=== PATIENT | female | born 1990 | race Caucasian/White ===

== ENCOUNTER 2023-02-25 08:13 | Inpatient (IN) ==
[2023-02-25] MEDS ORDERED: OXYTOCIN 30 UNITS/500 ML BAG IV PRN (09:27)
[2023-02-25] MEDS ORDERED: LIDOCAINE 1% LOCAL 20 ML VIAL INFIL PRN (09:27)
[2023-02-25] MEDS ORDERED: LACTATED RINGER'S 1,000 ML IV PRN (09:27)
[2023-02-25] MEDS ORDERED: LACTATED RINGER'S 1,000 ML IV SCH (09:30)
--- NOTE | 2023-02-25 09:38 | Anesthesiology Consultation ---
Date of Service February 25, 2023 Assessment & Plan (1) Encounter for pre-operative examination: Chart Review Chart Review: Acceptable Risk for Surgery History Surgery Operation Date: 02/25/23 09:35 Proposed Procedures p Section in LD - Amanda Banuelos MD, FACOG Height/Weight Height: 5 ft Weight: 119.748 kg Allergies Allergy/AdvReac Type Severity Reaction Status Date / Time No Known Allergies Allergy Severe NONE Verified 02/22/23 09:20 Medications Home Medications Medication Instructions Recorded Confirmed Last Taken albuterol sulfate 90 mcg/actuation 1 inh inhalation QID PRN 09/15/20 02/25/23 09/15/20 aerosol inhaler (Ventolin HFA) sob/wheezing prenat.vits,alysia,[id number] 1 tab PO DAILY 08/03/22 02/25/23 02/24/23 Advair Diskus 250 mcg-50 mcg/dose 1 inh inhalation Q12 #60 ea 11/03/22 02/25/23 02/25/23 07:00 powder for inhalation (fluticasone propion-salmeterol) calcium acetate PO DAILY 11/03/22 02/22/23 02/24/23 levothyroxine 100 mcg tablet 100 mcg PO DAILY #90 tabs 11/03/22 02/25/23 02/25/23 06:30 ferrous sulfate PO 12/15/22 02/22/23 02/24/23 Past Medical History Medical History (Updated 02/25/23 @ 09:37 by Jimenez Hutson MD) Anxiety Asthma Family history of blood clots Hypothyroid Obesity Past Family History Family History Grandmother (Maternal) Myocardial infarction Lupus Blood clot in vein Diabetes Mother Lupus Blood clot in vein Grandfather (Maternal) Glaucoma Denies family history of Ovarian cancer Prostate cancer Breast cancer Colorectal cancer Past Surgical History Surgical History History of throat surgery vocal cord surgery Hx of LASIK Status post tooth extraction [place] teeth extracted Social History Smoking Status: Never smoker Do You Dip or Chew Tobacco: No Hx Alcohol Use: No Hx Substance Use: No Physical Exam Vital Signs Last Vital Signs Temp 37.8 C H 02/25/23 08:30 Pulse 100 H 02/25/23 09:09 Resp 18 02/25/23 08:30 BP 162/86 H 02/25/23 09:09
--- NOTE | 2023-02-25 09:49 | History & Physical Report ---
Date of Service February 25, 2023 Assessment & Plan (1) Obesity affecting : Plan: IUP at 37 weeks with SPROM and early labor Patient requests primary section the procedure and its risks were reviewed with the patient and her and all questions answered to her satisfaction History of Present Illness Primary Care Provider: DEONTE Fuller Patient is a 32 yo EDC [birth year] who presents at 37 weeks with SPROM of clear fluid at 0640 this morning. contractions started about 1 hour after SPROM . complicated by hypothyroidism, asthma and morbid obesity. patient is requesting a primary elective and does not want a trial of labor. GBS -negative Allergies Allergy/AdvReac Type Severity Reaction Status Date / Time No Known Allergies Allergy Severe NONE Verified 02/22/23 09:20 Home Medications Medication Instructions Recorded Confirmed Type albuterol sulfate 90 mcg/actuation 1 inh inhalation QID PRN 09/15/20 02/25/23 History aerosol inhaler (Ventolin HFA) sob/wheezing prenat.vits,alysia,[id number] 1 tab PO DAILY 08/03/22 02/25/23 History Advair Diskus 250 mcg-50 mcg/dose 1 inh inhalation Q12 #60 ea 11/03/22 02/25/23 Rx powder for inhalation (fluticasone propion-salmeterol) calcium acetate PO DAILY 11/03/22 02/22/23 History levothyroxine 100 mcg tablet 100 mcg PO DAILY #90 tabs 11/03/22 02/25/23 Rx ferrous sulfate PO 12/15/22 02/22/23 History Patient History Medical History (Updated 02/25/23 @ 09:37 by Jimenez Hutson MD) Anxiety Asthma Family history of blood clots Hypothyroid Obesity Surgical History History of throat surgery vocal cord surgery Hx of LASIK Status post tooth extraction [place] teeth extracted Family History Grandmother (Maternal) Myocardial infarction Lupus Blood clot in vein Diabetes Mother Lupus Blood clot in vein Grandfather (Maternal) Glaucoma Denies family history of Ovarian cancer Prostate cancer Breast cancer Colorectal cancer Social History Smoking Status: Never smoker Second Hand Exposure: No; Do You Dip or Chew Tobacco: No; Hx Alcohol Use: No Hx Substance Use: No Preferred Language: Maltese Communication Ability: Effective Visual Impairment: No Limitations Hearing Ability: Normal Microelectronics Technician Required: No Beliefs That Will Affect Care: None marital status: marital status details: Alfred (37) [phone] Current Living Situation: Spouse Current Living Situation Comment: Lives at home with spouse current occupational status: employed 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 How many Children do You have: 0 Feels Safe at Home: Yes Safety Concerns: Feels Safe At This Time Diet: regular Diet Comment: regular caffeine: Yes during the past year weight has: decreased > 10 lbs Dental Care, Regularly: Yes Physical Activity Frequency: Daily Seatbelt Use: always Sunscreen Use: Yes Assistive Devices: None Review of Systems All systems reviewed & are unremarkable except as noted in HPI & below Physical Exam Constitutional: WD/WN, vitals as above Psychiatric: A+Ox3, euthymic affect Genitourinary: OB Exam Abdomen: + vertex, + estimated weight (7-8 pounds) and + irregular contractions Manual OB Exam: + cervical dilation 1 cm, + cervical effacement 50%, + station high and + amniotic fluid clear (grossly ruptured) and nitrazine positive OB Exam Monitor Tracing: + external FHT monitor used, + external uterine monitor used, + category I and + normal FHT variability Results & Data Vital Signs (Past 12 Hours) Vital Signs Temp Pulse Resp BP 02/25/23 09:09 100 H 162/86 H 02/25/23 08:55 106 H 154/78 H 02/25/23 08:39 105 H 173/97 H 02/25/23 08:30 100.0 F H 105 H 18 173/97 H Code Status & VTE Plan VTE Prophylaxis Plan VTE Prophylaxis will be ordered: No Coding Level of Care Code None Diagnoses Obesity affecting O99.210
[2023-02-25] MEDS ORDERED: ceFAZolin 330 MG/ML 1 GM VIAL IV STA (10:02)
[2023-02-25] MEDS ORDERED: CITRIC ACID/SODIUM CITRATE 15 ML UDC PO SCH (10:02)
[2023-02-25 10:15] LABS: Mean Corpuscular Hemoglobin 29.9 pg (25.0-34.0); Mean Corpuscular Hgb Conc 35.3 g/dL (32.0-36.0); Mean Corpuscular Volume 84.8 fL (80.0-100.0); Mean Platelet Volume 10.7 fL (9.4-12.4); Platelet Count 276 K/uL (130-400); RDW Coefficient of Variation 13.2 % (11.5-14.5); RDW Standard Deviation 40.5 fL (36.4-46.3); Red Blood Count 4.01 M/uL (4.20-5.40); White Blood Count 9.58 K/ul (4.8-10.8)
[2023-02-25] MEDS ORDERED: diphenhydrAMINE 50 MG/ML VIAL IV PRN (11:17)
[2023-02-25] MEDS ORDERED: LACTATED RINGER'S 500 ML IV PRN (11:17)
[2023-02-25] MEDS ORDERED: MoRPHine SULFATE 2 MG/ML CARP IV PRN (11:17)
[2023-02-25] MEDS ORDERED: PROMETHAZINE HCL 12.5 MG in SODIUM CHLORIDE 0.9% 50 ML IV PRN (11:17)
[2023-02-25] MEDS ORDERED: NALOXONE HCL 0.08 MG in SYRINGE 1.8 ML IV PRN (11:17)
[2023-02-25] MEDS ORDERED: ePHEDrine sulfate 50 MG/ML AMP IV PRN (11:17)
[2023-02-25] MEDS ORDERED: MoRPHine SULFATE PF 1 MG/ML 10 ML AMP/VIAL INT SPINAL ONE (11:17)
[2023-02-25] MEDS ORDERED: NALOXONE HCL 1 MG in SODIUM CHLORIDE 0.9% 1000ML 1,000 ML IV PRN (11:17)
[2023-02-25] MEDS ORDERED: ONDANSETRON INJ 2 MG/ML 2 ML VIAL IV PRN ×2 (11:17→12:02)
[2023-02-25] MEDS ORDERED: NALBUPHINE HCL INJ 10 MG/ML AMP IV PRN (11:17)
[2023-02-25] MEDS ORDERED: NALOXONE HCL 0.4 MG/1 ML VIAL/CARP IV PRN (11:17)
[2023-02-25] MEDS ORDERED: NO NARCOTICS OR SEDATIVES SCH (11:30)
[2023-02-25] MEDS ORDERED: DC INTRASPINAL MORPHINE SCH (11:30)
[2023-02-25] MEDS ORDERED: SODIUM CHLORIDE 0.9% 1000ML 1,000 ML IV SCH (11:30)
--- NOTE | 2023-02-25 12:00 | Post Operative Brief Note ---
PG Immediate Post Op with CF Date of Surgery February 25, 2023 Pre & Post Diagnosis Operation Date: 02/25/23 09:35 Pre-Op Diagnosis: 1. IUP at 37 weeks with rupture of membranes 2. Patient requesting elective primary c section Post-Op Diagnosis: Same I identified the patient and participated in the time-out.: Yes Procedure Operation Date: 02/25/23 09:35 Actual Procedures p Section in LD with the of a live female child at 1123. - Amanda Banuelos MD, FACOG Surgeon Amanda Banuelos MD, FACOG High Density Press Operator Vijaya Rich MD Estimated Blood Loss 300 Findings Consistent with Post-Op Diagnosis gravid uterus - normal tubes and ovaries Specimens Specimen Description: A: Placenta-exam B: Cord blood Drains Seals Catheter (inserted after spinal; clear yellow urine noted upon insertion. ) Anesthesia Type Spinal Complications none Disposition Accompanied Patient To Recovery: Yes
[2023-02-25] MEDS ORDERED: DIPHTHERIA/TETANUS/PERTUSSIS Vaccine (Tdap, Age 7+yrs) 0.5mL SYR/VL IM ONE (12:02)
[2023-02-25] MEDS ORDERED: SENNA 8.6 MG TAB PO PRN (12:02)
[2023-02-25] MEDS ORDERED: MAGNESIUM HYDROXIDE SUSP 30 ML UDC PO PRN (12:02)
[2023-02-25] MEDS ORDERED: HYDROCORTISONE ACETATE 25 MG SUPP PR PRN (12:02)
[2023-02-25] MEDS ORDERED: BENZOCAINE 20% AER SPR 82.5 GM CAN EXT PRN (12:02)
[2023-02-25] MEDS: OXYTOCIN 20 UNITS in LACTATED RINGER'S 1,000 ML IV SCH ×2 (12:46→21:56)
[2023-02-25] MEDS: KETOROLAC 30 MG/ML VIAL IV PRN ×2 (14:22→22:13)
--- NOTE | 2023-02-25 14:29 | Anesthesiology Progress Note ---
Date of Service February 25, 2023 Anesthesia Post Procedure Vital Signs Vital Signs: Temp Pulse Resp BP Pulse Ox 02/25/23 13:40 113 H 91 02/25/23 13:10 36.4 C L 100 H 95 02/25/23 13:11 36.4 C L 112 H 93 02/25/23 13:00 100 H 120/62 02/25/23 12:50 100 H 96 02/25/23 12:40 111 H 94 02/25/23 12:35 139 H 99 02/25/23 12:20 36.4 C L 100 H 96 02/25/23 12:10 36.4 C L 02/25/23 14:15 113 H 93 02/25/23 14:12 98 H 95 02/25/23 14:07 105 H 95 02/25/23 14:02 103 H 94 02/25/23 13:57 102 H 96 02/25/23 13:56 105 H 94 02/25/23 13:52 105 H 94 02/25/23 13:51 97 H 94 02/25/23 13:47 105 H 115/73 97 02/25/23 13:42 97 H 96 02/25/23 13:41 91 H 94 02/25/23 13:37 113 H 91 02/25/23 13:35 99 H 94 02/25/23 13:32 101 H 95 02/25/23 13:27 95 02/25/23 13:27 100 H 02/25/23 13:27 99 H 94 02/25/23 13:22 102 H 95 02/25/23 13:20 99 H 94 02/25/23 13:17 104 H 96 02/25/23 13:16 98 H 129/87 02/25/23 13:12 107 H 95 02/25/23 13:09 112 H 93 02/25/23 13:07 107 H 95 02/25/23 13:06 114 H 107/58 L 02/25/23 13:02 111 H 96 02/25/23 12:59 105 H 94 02/25/23 12:57 101 H 95 02/25/23 12:56 100 H 120/62 02/25/23 12:52 94 02/25/23 12:52 103 H 02/25/23 12:52 101 H 93 02/25/23 12:47 100 H 96 02/25/23 12:46 102 H 117/55 L 02/25/23 12:42 105 H 95 02/25/23 12:37 110 H 95 02/25/23 12:38 111 H 94 02/25/23 12:36 115 H 139/68 02/25/23 12:32 139 H 99 02/25/23 12:27 100 H 96 02/25/23 12:26 97 H 106/58 L 02/25/23 12:22 106 H 96 02/25/23 12:17 100 H 96 02/25/23 12:16 104 H 118/56 L 02/25/23 12:12 100 H 96 02/25/23 12:10 100 H 94 02/25/23 12:07 94 H 97 02/25/23 12:04 103 H 94 02/25/23 12:02 100 H 115/55 L 96 02/25/23 09:09 100 H 162/86 H 02/25/23 08:55 106 H 154/78 H 02/25/23 08:39 105 H 173/97 H 02/25/23 08:30 37.8 C H 105 H 18 173/97 H Pain Intensity Abdomen: Pain Intensity: 0 Transfer of Care Handoff Completed per policy Notes Mental Status: alert / awake / arousable Patient Amnestic to Procedure: Yes Nausea / Vomiting: adequately controlled Pain: adequately controlled Airway Patency, RR, SpO2: stable & adequate BP & HR: stable & adequate Hydration State: stable & adequate Neuraxial Anesthesia: was administered and sensory block is resolving Anesthetic Complications: no major complications apparent
--- NOTE | 2023-02-25 15:30 | Operative Report ---
PG Post Operative Report Pre & Post Diagnosis Operation Date: 02/25/23 09:35 Pre-Op Diagnosis: 1. IUP at 37 weeks with rupture of membranes 2. Patient requesting elective primary c section Post-Op Diagnosis: Same I identified the patient and participated in the time-out.: Yes Procedure Operation Date: 02/25/23 09:35 Actual Procedures p Section in LD with the of a live female child at 1123. - Amanda Banuelos MD, FACOG Surgeon Amanda Banuelos MD, FACOG Hot Walker Vijaya Rich MD Estimated Blood Loss 300 Findings Consistent with Post-Op Diagnosis Specimens placenta to exam- appears to be bilobed Drains Seals catheter to straight drainage- clear urine at end of the case Anesthesia Type Spinal Complications none Disposition Accompanied Patient To Recovery: Yes Indications Patient is a 32-year-old 2 para 0-0-1-0 female EDC 03/18/2024 who presents at 37 weeks 0 days with spontaneous rupture of membranes for clear fluid at approximately 640 today. She began to contract spontaneously approximately an hour later. Ruptured membranes was confirmed upon exam in labor and delivery. Patient was requesting an elective primary section. The procedure and its risks was reviewed with the patient and her and all questions were answered to their satisfaction prior to proceeding with a section. was complicated by asthma, morbid obesity, and hypothyroidism. GBS is negative. Description of Procedure After the patient received adequate subarachnoid block she was prepped and draped in usual sterile fashion. A low transverse skin incision was made with a scalpel and carried to the fascia with the same scalpel. The fascial incision was then extended with Cadet scissors and the underlying rectus muscles bluntly sharply dissected off of the overlying fascia. The rectus muscle were then bluntly divided along the midline, and the peritoneum elevated and entered sharply. The bladder was then taken down off the anterior surface of the uterus. And placed behind the bladder blade. The lower uterine segment was entered with a scalpel and extended transversely. The was delivered from the vertex presentation with the assistance of a Kiwi vacuum to guide the head into the uterine incision, as well as moderate fundal pressure. After the head was delivered the rest the delivered easily. It is a female that was vigorous and moving all 4 limbs upon delivery. The cord was clamped and cut, and the infant was handed off to Dr. George who was in attendance as uptwister tender. The placenta was expressed intact with a three-vessel cord. It was noted to have a bilobed appearance and will be sent for exam. The uterus was then exteriorized to cover the clean lap sponge. The uterine cavity was explored and remnants of retained membranes were removed. The uterus was closed in 2 layers in a running locking imbricating fashion with 0 Monocryl. Hemostasis was noted to be excellent. The posterior cul-de-sac was suctioned for a very small amount of fluid. The uterus was then placed back in the abdominal cavity. The gutters were explored and found be free of any fluid or clot. The uterine incision was examined was for continued and be hemostatic. The fascia was then closed in a running fashion with 0 Vicryl. After irrigating the subcutaneous layer, 3-0 catgut was used to close Rajesh's fascia. Skin edges were reapproximated with a subcuticular stitch of 3-0 Vicryl. After Steri-Strips were applied, a juan dressing was then also applied. Patient tolerated the procedure well and was stable upon arrival back in labor and delivery. I attest to the content of the Intraoperative Record and any orders documented therein. Any exceptions are noted below. OB Procedure Charges 60066
[2023-02-25] MEDS: LACTATED RINGER'S 1,000 ML IV SCH ×4 (16:48→21:08)
[2023-02-25] MEDS: SIMETHICONE 80 MG CHEW PO SCH ×3 (16:49→20:54)
[2023-02-25] MEDS: DOCUSATE SODIUM 100 MG CAP PO SCH (20:54)
[2023-02-26] MEDS ORDERED: diphenhydrAMINE 50 MG/ML VIAL IV PRN (05:17)
[2023-02-26] MEDS ORDERED: KETOROLAC 30 MG/ML VIAL IV PRN (05:17)
[2023-02-26] MEDS ORDERED: MEPERIDINE HCL 50 MG/ML CARP IV PRN (05:17)
[2023-02-26] MEDS ORDERED: PROMETHAZINE HCL 25 MG in SODIUM CHLORIDE 0.9% 50 ML IV PRN (05:17)
[2023-02-26] MEDS ORDERED: ZOLPIDEM TARTRATE 5 MG TAB PO PRN (05:17)
[2023-02-26] MEDS ORDERED: diphenhydrAMINE Capsule 25 MG CAP PO PRN (05:17)
[2023-02-26] MEDS: LACTATED RINGER'S 1,000 ML IV SCH (05:40)
[2023-02-26] MEDS: LEVOTHYROXINE SODIUM 100 MCG TABLET PO SCH (05:40)
[2023-02-26] MEDS ORDERED: CITRIC ACID/SODIUM CITRATE 15 ML UDC PO SCH (06:00)
[2023-02-26] MEDS: IBUPROFEN 600 MG TAB PO PRN ×3 (06:14→21:10)
[2023-02-26] MEDS: oxyCODONE/ACETAMINOPHEN 5mg/325mg TAB PO PRN ×3 (06:14→21:10)
[2023-02-26 07:46] LABS: Hematocrit (blood only) 29.6 % (37.0-47.0); Hemoglobin 10.4 g/dl (12.0-16.0); Immature Granulocytes # (auto) 0.03 K/uL (0.01-0.20); Immature Granulocytes % (auto) 0.4 %; Lymphocytes # (auto) 1.27 K/uL (1.2-3.4); Lymphocytes % (auto) 15.5 %; Mean Corpuscular Hemoglobin 30.8 pg (25.0-34.0); Mean Corpuscular Hgb Conc 35.1 g/dL (32.0-36.0); Mean Corpuscular Volume 87.6 fL (80.0-100.0); Mean Platelet Volume 10.5 fL (9.4-12.4); Monocytes % (auto) 7.3 %; Neutrophils # (auto) 6.31 K/uL (1.40-6.50); Neutrophils % (auto) 76.8 %; Platelet Count 234 K/uL (130-400); RDW Coefficient of Variation 13.2 % (11.5-14.5); RDW Standard Deviation 41.6 fL (36.4-46.3); Red Blood Count 3.38 M/uL (4.20-5.40); White Blood Count 8.21 K/ul (4.8-10.8)
[2023-02-26] MEDS: PRENATAL VITAMIN 1 TAB PO SCH (08:10)
[2023-02-26] MEDS: FERROUS SULFATE 325 MG TAB PO SCH (08:10)
[2023-02-26] MEDS: DOCUSATE SODIUM 100 MG CAP PO SCH ×2 (08:10→21:10)
[2023-02-26] MEDS: SIMETHICONE 80 MG CHEW PO SCH ×4 (08:10→21:10)
--- NOTE | 2023-02-26 08:48 | Obstetrical Progress Note ---
Date of Service February 26, 2023 Assessment & Plan (1) Encounter for care and examination after delivery: satisfactory post-op progress continue current care plan Subjective Ambulation: ambulating normally Voiding: no voiding problems Passing Gas:: Yes Diet Tolerance:: regular diet Lochia:: Small Feeding Type:: breast feeding pain well managed Review of Systems All systems reviewed & are unremarkable except as noted in HPI & below Physical Exam Constitutional WD/WN, vitals as above Gastrointestinal (Abdomen) incision intact and dry Psychiatric A+Ox3, euthymic affect Genitourinary OB Exam Abdomen: + fundal height Fundus: + firm and + relation to umbilicus (at U) Results & Data Vital Signs (Past 12 Hours) Vital Signs Temp Pulse Resp BP Pulse Ox O2 Del Method 02/26/23 04:00 18 100 02/26/23 02:00 18 99 02/26/23 01:00 18 100 02/26/23 00:00 18 100 02/26/23 03:10 98.4 F 96 H 18 120/82 100 Room Air 02/25/23 23:05 20 100 02/25/23 21:00 18 99 02/25/23 22:18 98.2 F 92 H 20 126/82 100 Room Air
[2023-02-26] MEDS ORDERED: bisacodyL 5 MG TABEC PO SCH (20:00)
[2023-02-27 06:16] LABS: Hemoglobin 9.6 g/dl (12.0-16.0)
[2023-02-27] MEDS: LEVOTHYROXINE SODIUM 100 MCG TABLET PO SCH (06:19)
--- NOTE | 2023-02-27 07:20 | Obstetrical Progress Note ---
Date of Service February 27, 2023 Assessment & Plan (1) Encounter for care and examination after delivery: Postoperative from section patient meets discharge criteria as she is ambulating well tolerating an oral diet has minimal bleeding and no extremity pain. cont currenbt care Subjective Ambulation: ambulating normally Voiding: no voiding problems Passing Gas:: Yes Diet Tolerance:: regular diet Lochia:: Small Results & Data Vital Signs (Past 12 Hours) Vital Signs Temp Pulse Resp BP Pulse Ox O2 Del Method 02/26/23 23:05 97.9 F 101 H 20 137/85 98 Room Air 02/26/23 21:19 97.9 F 103 H 18 127/85 Room Air
[2023-02-27] MEDS: DOCUSATE SODIUM 100 MG CAP PO SCH ×2 (07:52→20:14)
[2023-02-27] MEDS: FERROUS SULFATE 325 MG TAB PO SCH (07:52)
[2023-02-27] MEDS: SIMETHICONE 80 MG CHEW PO SCH ×4 (07:52→20:15)
[2023-02-27] MEDS: IBUPROFEN 600 MG TAB PO PRN ×3 (07:53→20:15)
[2023-02-27] MEDS: PRENATAL VITAMIN 1 TAB PO SCH (07:54)
[2023-02-27] MEDS: oxyCODONE/ACETAMINOPHEN 5mg/325mg TAB PO PRN ×3 (07:54→20:15)
[2023-02-27] MEDS: ESCITALOPRAM OXALATE 20 MG TAB PO SCH (09:21)
[2023-02-27] MEDS: FLUTICASONE/VILANTEROL 200/25MCG 14 PUFFS/INHALER INH SCH (09:22)
[2023-02-27] MEDS ORDERED: bisacodyL 10 MG SUPP PR PRN (12:02)
[2023-02-28] MEDS: IBUPROFEN 600 MG TAB PO PRN ×3 (03:08→16:22)
[2023-02-28] MEDS: LEVOTHYROXINE SODIUM 100 MCG TABLET PO SCH (06:13)
--- NOTE | 2023-02-28 07:34 | Obstetrical Progress Note ---
Date of Service February 28, 2023 Assessment & Plan (1) Encounter for care and examination after delivery: (2) Obesity: (3) Anxiety: Plan - Endorses anxiety along with nausea, indigestion, and substernal chest pain - not feeling up to going home * EKG ordered to eval CP * Examination and vitals stable * PO Zofran provided for nausea * Suspect a/w GERD as patient has longstanding hx * Continue Lexapro - Infant formula feeding going well without concern - Urinating and passing gas appropriately, stooling appropriately - Ambulating well in room - Pain controlled w/ Ibuprofen/ Percocet - Hgb 02/27 was 9.6 - Routine PP care progressing well - Anticipate discharge @ 48-72 hours PP - Recommending f/u outpatient in 6 weeks Admission and Anticipated Discharge Date Admission Date: February 25, 2023 Supervising Physician Co-Signing Physician Notes Resident Physician Supervision Note: I was present with Dr. Hernandez during the history and exam. I discussed the case with the resident and agree with the findings and plan as documented in the note. Any exceptions or clarifications are listed here: [None] Documented By: Luis F Landon MD, FACOG Subjective Patient is a 32F who is POD#3 following delivery at 37 0/7. She reports feeling well overall this morning. - Ambulation - well throughout room - Voiding/Seals - independent voids, no dysuria or pressure - Gas/Stool - passing gas, had bowel movement - Diet - regular, endorsing nausea w/o emesis and indigestion - Lochia - light amount, new since bowel movement - Feeding Type - formula feeding - Pain Level - 4/10, controlled with Ibuprofen/ Percocet Review of Systems - Endorses fever, chills, sweats - Denies shortness of breath, difficulty breathing - Endorses substernal chest pain w/o palpitations or chest pressure. - Denies breast pain. - Denies dysuria. - Denies active headache or changes in vision (notes she had some yesterday). - Endorses feeling very anxious Physical Exam Physical Exam: General: Alert, oriented. No acute distress. Cardiac: RRR, normal S1/S2, no murmurs/rubs/gallops. Respiratory: Non-labored, CTAB, no wheezes/rales/rhonchi. Symmetric chest rise. Abdomen: Soft, mild TTP in epigastrium, nondistended. Bowel sounds present. Uterus: Uterine fundus firm, palpable 2 cm below umbilicus. MICHAEL dressing intact, no surrounding erythema. Lower Extremities: 2+ LE edema. No deep calf pain. Staci's negative bilaterally. Results & Data Vital Signs (Past 12 Hours) Vital Signs Temp Pulse Resp BP BP Pulse Ox O2 Del Method 02/28/23 03:00 36.6 C 02/27/23 23:41 36.4 C L 64 20 131/84 99 Room Air 02/27/23 22:00 121/82 02/27/23 20:00 36.7 C 73 18 141/97 H 144/90 H 100 Room Air Resident Activity Tracking Resident Involvement: Resident Care Provided Care Provided: OB Delivery
[2023-02-28] MEDS: SIMETHICONE 80 MG CHEW PO SCH ×3 (08:22→16:18)
[2023-02-28] MEDS: FLUTICASONE/VILANTEROL 200/25MCG 14 PUFFS/INHALER INH SCH (08:22)
[2023-02-28] MEDS: FERROUS SULFATE 325 MG TAB PO SCH (08:22)
[2023-02-28] MEDS: DOCUSATE SODIUM 100 MG CAP PO SCH (08:22)
[2023-02-28] MEDS: oxyCODONE/ACETAMINOPHEN 5mg/325mg TAB PO PRN ×2 (08:23→16:21)
[2023-02-28] MEDS: ONDANSETRON 4 MG OD TAB PO PRN ×2 (08:23→12:41)
[2023-02-28] MEDS: ESCITALOPRAM OXALATE 20 MG TAB PO SCH (08:24)
[2023-02-28] MEDS: PRENATAL VITAMIN 1 TAB PO SCH (08:24)
--- NOTE | 2023-02-28 14:02 | Electrocardiogram Report ---
Test Reason : Blood Pressure : / mmHG Vent. Rate : 074 BPM Atrial Rate : 074 BPM P-R Int : 142 ms QRS Dur : 082 ms QT Int : 384 ms P-R-T Axes : 068 084 016 degrees QTc Int : 426 ms Normal sinus rhythm with sinus arrhythmia Normal ECG When compared with ECG of 15-SEP-2020 16:46, Nonspecific T wave abnormality no longer evident in Anterolateral leads Confirmed by Karl Hahn ([id number]) on 02/28/2023 2:02:25 PM Referred By: Amanda Banuelos Confirmed By:Karl Hahn
--- NOTE | 2023-03-02 11:07 | Discharge Summary ---
Date of Service March 02, 2023 Admission HPI Per Admitting Provider Patient is a 32 yo EDC [birth year] who presents at 37 weeks with SPROM of clear fluid at 0640 this morning. contractions started about 1 hour after SPROM . complicated by hypothyroidism, asthma and morbid obesity. patient is requesting a primary elective and does not want a trial of labor. GBS -negative Admission Exam (Per Admitting) Constitutional WD/WN, vitals as above Constitutional + WD/WN, vitals as above Psychiatric + A+Ox3, euthymic affect Genitourinary grossly ruptured for clear fluid. contractions moderate Q4-6 minutes. reassuring FHR tracing. cervix exam- 1cm/50%/-3 Discharge Data Consultations 02/25/23 09:27 Consult Anesthesiology Stat 02/25/23 09:29 Consult Anesthesiology Stat Procedures Performed Operation Date: 02/25/23 09:35 Actual Procedures p Section in LD with the of a live female child at 1123. - Amanda Banuelos MD, [facility] Course (1) Encounter for care and examination after delivery: Patient initially had an uneventful postoperative course however on day 3 she developed increasing anxiety, nausea, Acid reflux and then substernal chest pain. EKG was obtained at that time and was read as normal. Patient has a long history of GERD needing treatment in the past. She had been restarted on Lexapro for her anxiety on day #1. Patient had resolution of her nausea with Zofran and after reassurance, the chest pain resolved. Prior to this she had been ambulating and voiding without difficulty. Pain was well-controlled with oral pain medication. She does have a juan dressing that was applied at the time of her section. She was sent home in good condition with instructions to follow-up for removal of the juan dressing in the office in 1 week. She is also sent home with the usual and postoperative instructions. (2) Status post primary low transverse section: Discharge Plan Discharge Items Patient Disposition: Home - Self-Care Reason For Visit: RULE OUT RUPTURE Discharge Diagnosis: , delivered recovery from primary C/S Activity: Resume your previous activity Non-emergency contact: Primary Care Provider and Assistant Director Of Admissions Call non-emergency contact if: you have any medication questions and you have a fever Follow-up/Referrals: Jarrett Schulz CRNP [Primary Care Provider] - Leydi-Amanda Valiente MD, FACOG [Physician] - Diet: Regular Addtl Attending Provider Instructions: Activity: - Gradual return to full activity over the next 2-3 weeks. - No lifting - nothing heavier than baby over the next 2-3 weeks. - Do not engage in vigorous exercise, sexual activity or sports until cleared by your physician. - Do not drive or operate any motorized equipment until cleared by your physician. - You may shower/bathe daily. Medications: For discomfort or pain, you may use Acetaminophen (Tylenol), Ibuprofen (Advil), or Naproxen (Aleve) following the package directions. For constipation you may use Colace following the package directions. Breast Care: If you are not breast feeding: - Wear a supportive bra (tight sports bra) 24 hours a day for 1-2 weeks. - Avoid stimulating your breasts and nipples as much as possible during the first few weeks after delivery. - When taking a shower, have the warm water hit your back, not breasts. - When your breasts feel full, apply ice packs. Usually three to four times a day helps ease the discomfort. - Take a mild pain medication (Tylenol / Motrin) when you are uncomfortable. If you are breast feeding: - Use breast milk to lubricate nipples. Lansinoh cream may be used for sore nipples. You do not need to remove cream prior to breast feeding. If using a different brand of cream, check the label for directions regarding removal of cream prior to nursing. - Wear a supportive bra. - If having problems with breasts or breast feeding, call a php consultant or your health care provider. Special Care: When you are discharged from the hospital, it is important for you to follow the instructions listed below: - During the first week at home, you should be able to care for yourself and your baby. In addition, the usual light household activities are encouraged. - Limit your activities to the way you feel. Do not try to clean the house or move furniture. Be sensible. - If you actively engage in sports and have done so up until the time of your delivery, you may resume these activities as soon as you feel able. This may take up to one month or even longer. Use good judgment. - Continue to take your vitamins for at least six weeks after the of your baby. - Your diet need not be limited unless you were on a special diet before your delivery. Breast-feeding mothers need around 2500 calories per day and at least 64-80 ounces of fluid per day (8 to 10 glasses). - You should eat foods from the four major food groups. Crash diets or fad diets are to be avoided. Eating lean meats, fresh fruits and vegetables, low-fat dairy products, high fiber foods and a regular exercise program, will help you get back to your pre- weight without putting your health at risk. - Constipation is sometimes a problem after delivery. Take a mild laxative as needed. If breast feeding, Milk of Magnesia is acceptable to use. You may use a suppository or Fleets enema. - A daily shower or tub bath is suggested. Wash incision daily with warm soapy water and pat dry. It doesn't need to be covered unless drainage is present. - A bloody vaginal discharge will usually continue until around four weeks . A small amount of bleeding may continue for as long as six weeks. Vaginal discharge changes from the bright red bleeding after delivery to pink then brownish and finally yellowish-pink before becoming white and disappearing. - Bleeding may increase with activity. Your first period may come in 4-8 we eks. If you are breast feeding, your period may be delayed even longer. - [place] (sex) can begin whenever both you and your partner feel comfortable and do not have any form of genital infection. It is recommended that you wait at least six weeks for internal and external healing to occur. If you have questions, please talk to your health care practitioner. A condom should be used to prevent infection and . - Foreplay, gentle intercourse and lubrication is very important the first several times to prevent pain. A water-based lubricant such as K-Y jelly or Astroglide may be used. - If you have RH negative blood and your baby is RH positive, you will receive RHOGAM by injection prior to discharge. The nurse will give you a card to keep with you that has the date and place that you received RHOGAM after delivery. - During your care, you had a Rubella screen done to check for the presence of rubella antibodies in your blood. If your test was negative, you will receive a Rubella vaccine prior to discharge. This vaccine may cause a fever, soreness at the injection site and flu-like symptoms. If these symptoms persist, notify your health care practitioner. is not advised for one month after a Rubella vaccine. - Verbalizes understanding of car seat law as reviewed with patient nursing. - Car Seat hand-out given and reviewed with patient by nursing. - Shaken baby information reviewed with patient by nursing. Call you doctor if: - Heavy bleeding (saturating several pads an hour) or passing clots the size of your fist. - A fever >101 degrees F (38.3 degrees C) on two occasions four hours apart and/or chills. - Unusual pain in the pelvic or vaginal areas. - Call the doctor for any increased redness, drainage or swelling around the incision and any pain unrelieved by prescribed pain medication. - "Baby Blues" lasting longer than two weeks. Follow up: - Please call the office at to schedule a 6 week examination. It is important you keep this appointment. It is important for you to make arrangements for either yearly or twice yearly check-ups thereafter. If you have any questions or concerns, call your health care practitioner at . Pending Studies at Discharge: No Stand-Alone Forms: My [facility], Smoking Cessation Medications and DC Order Prescriptions: New escitalopram oxalate 20 mg Tablet 20 mg PO QAM 30 Days Qty: 30 0RF Continued levothyroxine 100 mcg tablet 100 mcg PO DAILY Qty: 90 3RF ferrous sulfate PO calcium acetate PO DAILY fluticasone propion-salmeterol [Advair Diskus] 250-50 mcg/dose blister with device 1 inh INHALATION Q12 Qty: 60 3RF prenat.vits,alysia,[id number]-[id number]-[id number] Tablet 1 tab PO DAILY albuterol sulfate [Ventolin HFA] 90 mcg/actuation Hfa Aerosol Inhaler 1 inh INHALATION QID PRN (Reason: sob/wheezing) No Action oxycodone-acetaminophen [Percocet] 5-325 mg tablet 1 tab PO Q6H PRN (Reason: pain) Qty: 10 0RF ondansetron HCl 4 mg tablet 4 mg PO Q8H PRN (Reason: nausea and vomiting) 5 Days Qty: 10 1RF Discharge Orders: Discharge Order (Routine); Ordered 02/28/23 Ordered By: Vijaya Weller/Other Patient Handouts: Understanding Deep Vein Thrombosis, Depression, After a , Hemorrhage Admission Data Admit Date/Time: 02/25/23 09:27 Attending Provider: Amanda Banuelos Admit Provider: Amanda Banuelos Primary Care Provider: Jarrett Schulz Other Providers: Jimenez Hutson Other Interventions: Discharge Summary Assessment (RN) Last Done: 02/28/23 16:48 Coding Level of Care Code None Diagnoses Encounter for care and examination after delivery Z39.2 Status post primary low transverse section Z98.891
== END 2023-02-28 18:05 | disposition home or self-care (01) | DRG 788 ==
LOC: OPB 08:13 → 4S1 08:16 → 4E2 15:02
DX: Z3A.37 37 weeks gestation of pregnancy; E03.9 Hypothyroidism, unspecified; O99.214 Obesity complicating childbirth; Z79.890 Hormone replacement therapy; O99.52 Diseases of the respiratory system complicating childbirth; E66.01 Morbid (severe) obesity due to excess calories; J45.909 Unspecified asthma, uncomplicated; Z37.0 Single live birth; O99.284 Endocrine, nutritional and metabolic diseases complicating childbirth